=== PATIENT | female | born 1985 | race Caucasian/White ===

== ENCOUNTER → 2018-09-22 | Outpatient (CLI) | payer OTHER, SELFPAY ==
[~2018-09-22] MED LIST: CONC27TA4 PO; METH27TA5; PRAZ2CAP; PRAZ2CAP PO; RISP1TAB3; RISP1TAB3 PO; VENTAER INH
== END ==
LOC: M OUTALCOH 08:13
PROVIDERS: ATTEND Psychiatry & Neurology Psychiatry
DX: F10.20 Alcohol dependence, uncomplicated (principal)

== ENCOUNTER 2018-10-09 16:00 | Outpatient (RCR) | payer OTHER | END 2018-10-14 | LOC: M OUTALCOH 16:00 | PROVIDERS: ATTEND Psychiatry & Neurology Psychiatry | DX: F10.20 Alcohol dependence, uncomplicated (principal); F17.200 Nicotine dependence, unspecified, uncomplicated ==

== ENCOUNTER → 2018-10-30 | Outpatient (REF) | payer OTHER ==
[2018-10-30 12:52] LABS: BASO # 0.1 10^3/uL (0.0-0.2); BASO % 0.4 % (0.0-1.0); EOS # 0.1 10^3/uL (0.0-0.5); EOS % 0.5 % (0.0-3.0); HEMATOCRIT 39.7 % (36.0-47.0); HEMOGLOBIN 13.4 g/dl (12.0-15.5); LYMPH # 1.9 10^3/uL (1.5-5.0); LYMPH % 16.3 % (24.0-44.0); MEAN CORPUSCULAR HEMOGLOBIN 30.9 pg (27.0-33.0); MEAN CORPUSCULAR HGB CONC 33.8 g/dl (32.0-36.5); MEAN CORPUSCULAR VOLUME 91.7 fl (80.0-96.0); MONO # 0.5 10^3/uL (0.0-0.8); MONO % 4.4 % (0.0-5.0); NEUTROPHILS # 9.1 10^3/uL (1.5-8.5); NEUTROPHILS % 78.1 % (36.0-66.0); PLATELET COUNT, AUTOMATED 335 10^3/uL (150-450); RED BLOOD COUNT 4.33 10^6/uL (4.00-5.40); WHITE BLOOD COUNT 11.7 10^3/uL (4.0-10.0)
[2018-10-30 13:48] LABS: HEPATITIS A ANTIBODY IGM NEGATIVE (NEGATIVE); HEPATITIS B CORE ANTIBODY IGM NEGATIVE (NEGATIVE); HEPATITIS B SURFACE ANTIGEN NEGATIVE (NEGATIVE); HEPATITIS C VIRUS ABY INDEX 0.1 INDEX (<0.8); HIV 1&2 SCREEN CENTAUR NEGATIVE (NEGATIVE)
== END ==
LOC: M SFHCPLAZ 10:12
PROVIDERS: ATTEND Family Medicine
DX: Z11.4 Encounter for screening for human immunodeficiency virus [HIV] (principal); Z11.59 Encounter for screening for other viral diseases; N30.01 Acute cystitis with hematuria

== ENCOUNTER 2018-11-10 12:47 | Outpatient (RCR) | payer OTHER | END 2018-11-13 | LOC: M OUTALCOH 12:47 | PROVIDERS: ATTEND Psychiatry & Neurology Psychiatry | DX: F10.20 Alcohol dependence, uncomplicated (principal); F17.200 Nicotine dependence, unspecified, uncomplicated ==

== ENCOUNTER 2018-11-24 10:30 | Outpatient (RCR) | payer OTHER | END 2018-12-14 | LOC: M OUTALCOH 10:30 | PROVIDERS: ATTEND Psychiatry & Neurology Psychiatry | DX: F10.20 Alcohol dependence, uncomplicated (principal); F17.200 Nicotine dependence, unspecified, uncomplicated ==

== ENCOUNTER → 2018-11-29 | Outpatient (REF) | payer OTHER ==
[2018-11-29 12:31] LABS: FREE T4 0.97 NG/DL (0.76-1.46)
[2018-11-29 13:13] LABS: HIV 1&2 SCREEN CENTAUR NEGATIVE (NEGATIVE)
[2018-11-29 14:02] LABS: CHLAMYDIA DNA AMPLIFICATION NEGATIVE (NEGATIVE); GC DNA AMPLIFICATION NEGATIVE (NEGATIVE)
== END ==
LOC: M SFHCPLAZ 10:16
PROVIDERS: ATTEND Family Medicine
DX: Z11.3 Encounter for screening for infections with a predominantly sexual mode of transmission (principal); Z13.29 Encounter for screening for other suspected endocrine disorder

== ENCOUNTER 2019-04-06 08:46 | Emergency (ER) | payer OTHER ==
[~2019-04-06] VITALS: Ht 165.1 cm; Wt 59.1 kg
[2019-04-06] MEDS ORDERED: ONDANSETRON 4MG/2ML VIAL (J2405) IV ONE (09:30)
[2019-04-06] MEDS ORDERED: ACETAMINOPHEN TAB 650MG DOSE (2X325MG) PO ONE (09:30)
[2019-04-06 09:38] LABS: BASO % 0.3 % (0.0-1.0); EOS % 0.3 % (0.0-3.0); HEMATOCRIT 38.9 % (36.0-47.0); HEMOGLOBIN 13.3 g/dl (12.0-15.5); LYMPH # 1.4 10^3/uL (1.5-5.0); LYMPH % 11.5 % (24.0-44.0); MEAN CORPUSCULAR HEMOGLOBIN 31.1 pg (27.0-33.0); MEAN CORPUSCULAR HGB CONC 34.2 g/dl (32.0-36.5); MEAN CORPUSCULAR VOLUME 91.1 fl (80.0-96.0); MONO % 8.8 % (0.0-5.0); NEUTROPHILS # 9.4 10^3/uL (1.5-8.5); NEUTROPHILS % 78.7 % (36.0-66.0); PLATELET COUNT, AUTOMATED 289 10^3/uL (150-450); RED BLOOD COUNT 4.27 10^6/uL (4.00-5.40); WHITE BLOOD COUNT 11.9 10^3/uL (4.0-10.0)
--- NOTE | 2019-04-06 09:55 | REP ---
Clinical: Left flank pain. Technique: Axial noncontrast images from the lung bases to the pubic symphysis with coronal and sagittal re-formations. Findings: The kidneys demonstrate mild perinephric stranding (left greater than right) without hydroureteronephrosis or nephroureterolithiasis. Liver, spleen, pancreas, and bilateral adrenal glands are normal. Evidence of prior cholecystectomy. The enteric system is without obstruction or acute inflammatory process. Pelvis demonstrates collapsed normal bladder and evidence of prior hysterectomy. No ascites. No free air. No adenopathy. Abdominal aorta without aneurysm. Musculoskeletal structures are intact. Lung bases are clear. Impression: 1. Perinephric stranding (left greater than right) suggests possible pyelonephritis. No hydronephrosis or nephroureterolithiasis. Electronically Signed by Phil Groves MD 04/06/2019 09:47 A
[2019-04-06 11:03] LABS: ALT/SGPT 30 U/L (12-78); BILIRUBIN,DIRECT 0.2 MG/DL (0.0-0.2); BILIRUBIN,TOTAL 0.5 MG/DL (0.2-1.0); BLOOD UREA NITROGEN 8 MG/DL (7-18); CARBON DIOXIDE LEVEL 24 MEQ/L (21-32); CHLORIDE LEVEL 105 MEQ/L (98-107); CREATININE FOR GFR 0.68 MG/DL (0.55-1.30); GLOMERULAR FILTRATION RATE > 60.0 (>60); GLUCOSE, FASTING 95 MG/DL (70-100); LIPASE 64 U/L (73-393); POTASSIUM SERUM 3.7 MEQ/L (3.5-5.1); SODIUM LEVEL 137 MEQ/L (136-145); TOTAL PROTEIN 7.8 GM/DL (6.4-8.2)
[2019-04-06] MEDS ORDERED: KETOROLAC 30 MG/ML VIAL (J1885) IV ONE (11:15)
[2019-04-06] MEDS ORDERED: cefTRIAXone SOD 1 GM in D5W MINI-BAG PLUS 50 ML IV ONE (11:15)
[2019-04-06] MEDS ORDERED: BACT800T5 PO (11:21)
[2019-04-06] MEDS ORDERED: ONDA4TAB6 PO (12:23)
[2019-04-06 12:28] VITALS: BP 116/62
== END 2019-04-06 12:36 | disposition home or self-care (01) ==
LOC: M ED 08:46
DX: N10 Acute pyelonephritis (principal); N39.0 Urinary tract infection, site not specified; K80.20 Calculus of gallbladder without cholecystitis without obstruction; Z87.442 Personal history of urinary calculi; Z87.448 Personal history of other diseases of urinary system; F43.10 Post-traumatic stress disorder, unspecified; F31.89 Other bipolar disorder; Z85.42 Personal history of malignant neoplasm of other parts of uterus; F17.200 Nicotine dependence, unspecified, uncomplicated; Z88.8 Allergy status to other drugs, medicaments and biological substances
CPT/HCPCS: 74176; 80048; 80076; 81001; 83690; 85025; 87088; 87186; 96365; 96375; 99284; J0696; J1885; J2405

== ENCOUNTER 2019-05-26 15:35 | Emergency (ER) | payer OTHER ==
[~2019-05-26] VITALS: Ht 165.1 cm; Wt 61.0 kg
[2019-05-26 15:35] VITALS: BP 137/83
[~2019-05-26 15:35] MED LIST changes: +BACT800T5 PO; +ONDA4TAB6 PO
[2019-05-26] MEDS ORDERED: QC A650T3 PO (15:54)
[2019-05-26 16:19] LABS: BASO % 0.3 % (0.0-1.0); EOS # 0.1 10^3/uL (0.0-0.5); EOS % 0.4 % (0.0-3.0); HEMOGLOBIN 13.3 g/dl (12.0-15.5); LYMPH # 2.2 10^3/uL (1.5-5.0); LYMPH % 18.2 % (24.0-44.0); MEAN CORPUSCULAR HEMOGLOBIN 31.6 pg (27.0-33.0); MEAN CORPUSCULAR HGB CONC 33.3 g/dl (32.0-36.5); MONO # 0.7 10^3/uL (0.0-0.8); MONO % 5.6 % (0.0-5.0); NEUTROPHILS # 9.1 10^3/uL (1.5-8.5); NEUTROPHILS % 75.3 % (36.0-66.0); PLATELET COUNT, AUTOMATED 306 10^3/uL (150-450); RED BLOOD COUNT 4.21 10^6/uL (4.00-5.40); WHITE BLOOD COUNT 12.1 10^3/uL (4.0-10.0)
[2019-05-26] MEDS ORDERED: OMEP40CA97 PO (16:55)
== END 2019-05-26 17:04 | disposition home or self-care (01) ==
LOC: M ED 15:35
DX: K64.4 Residual hemorrhoidal skin tags (principal); K21.9 Gastro-esophageal reflux disease without esophagitis; R31.9 Hematuria, unspecified; R51 Headache; J45.909 Unspecified asthma, uncomplicated; D64.9 Anemia, unspecified; F43.10 Post-traumatic stress disorder, unspecified; F31.89 Other bipolar disorder; F41.9 Anxiety disorder, unspecified; F20.9 Schizophrenia, unspecified; F17.200 Nicotine dependence, unspecified, uncomplicated; Z88.8 Allergy status to other drugs, medicaments and biological substances

== ENCOUNTER → 2019-05-31 | Outpatient (REF) | payer OTHER ==
[~2019-05-31] MED LIST changes: +OMEP40CA97 PO; +QC A650T3 PO
[2019-05-31 17:41] LABS: APPEARANCE, URINE CLEAR (CLEAR); BACTERIA, URINE AUTO NEGATIVE (NEGATIVE); BILIRUBIN, URINE AUTO NEGATIVE (NEGATIVE); BLOOD, URINE BLOOD 1+ (NEGATIVE); COLOR, URINE STRAW (YELLOW); GLUCOSE, URINE (UA) AUTO NEGATIVE (NEGATIVE); KETONE, URINE AUTO NEGATIVE (NEGATIVE); LEUKOCYTE ESTERASE, URINE AUTO NEGATIVE (NEGATIVE); MUCUS, URINE SMALL (NEGATIVE); NITRITE, URINE AUTO NEGATIVE (NEGATIVE); PROTEIN, URINE AUTO NEGATIVE (NEGATIVE); RBC, URINE AUTO 0 /HPF (0-3); SPECIFIC GRAVITY URINE AUTO 1.003 (1.002-1.035); SQUAMOUS EPITHELIAL CELL UR AU 1 /HPF (0-6); UROBILINOGEN, URINE AUTO 0.2 mg/dL (0.0-2.0); WBC, URINE AUTO 0 /HPF (0-3)
== END ==
LOC: M SMT 17:02
PROVIDERS: ATTEND Nurse Practitioner Women's Health
DX: N39.0 Urinary tract infection, site not specified (principal)

== ENCOUNTER 2019-08-04 10:34 | Emergency (ER) | payer OTHER ==
[~2019-08-04] VITALS: Ht 165.1 cm; Wt 61.4 kg
[2019-08-04] MEDS ORDERED: ACETAMINOPHEN 325 MG TAB PO ONE (11:15)
[2019-08-04] MEDS ORDERED: LORazepam 1 MG TAB PO STA (11:16)
--- NOTE | 2019-08-04 11:40 | REP ---
Head CT without contrast: History: Head trauma. Comparison study: No comparison study. CT findings: Bone window settings demonstrate an intact bony calvarium. There is no evidence of skull fracture or incidental bony calvarial lesion. The visualized paranasal sinuses appear clear. No intraorbital abnormality is seen. On soft tissue window setting images; the lateral, third, and fourth ventricles are normal in size and position. Mello-white differentiation pattern is normal above and below the tentorium. There are is no evidence of intracranial hemorrhage. No mass, edema, infarction, or midline shift is seen. No extra-axial fluid collection is appreciated. Impression: Negative noncontrast head CT. Electronically Signed by Barry Padilla MD 08/04/2019 11:29 A
[2019-08-04 12:15] VITALS: BP 119/81
--- NOTE | 2019-08-04 14:39 | ECGEPIP ---
[facility] - ED Test Date: 2019-08-04 Pat Name: SCOTTY NEWMAN Department: Room: - Gender: Female Forepart Rasper: NORRIS : 1985 Requested By: NEO Chin PA-C Order Number: [id number] Reading MD: Kaylie Laboy Measurements Intervals [place] Rate: 84 P: 66 [place]: 177 QRS: 83 QRSD: 101 T: 57 QT: 368 QTc: 436 Interpretive Statements SINUS RHYTHM POSSIBLE RIGHT VENTRICULAR CONDUCTION DELAY No prior Electronically Signed on 08-04-2019 14:39:18 EDT by Kaylie Laboy
== END 2019-08-04 12:19 | disposition home or self-care (01) ==
LOC: M ED 10:34
DX: S09.90XA Unspecified injury of head, initial encounter (principal); T74.11XA Adult physical abuse, confirmed, initial encounter; F41.9 Anxiety disorder, unspecified; Y04.8XXA Assault by other bodily force, initial encounter; Y92.099 Unspecified place in other non-institutional residence as the place of occurrence of the external cause; Y93.9 Activity, unspecified; Y99.9 Unspecified external cause status; J45.909 Unspecified asthma, uncomplicated; F31.89 Other bipolar disorder; Z85.42 Personal history of malignant neoplasm of other parts of uterus; Z72.0 Tobacco use; Z88.8 Allergy status to other drugs, medicaments and biological substances

== ENCOUNTER 2019-11-28 01:18 | Emergency (ER) | payer OTHER ==
[~2019-11-28] VITALS: Ht 165.1 cm; Wt 62.7 kg
[2019-11-28] MEDS ORDERED: IBUP-1022 PO (01:33)
--- NOTE | 2019-11-28 02:02 | REPVR ---
PROCEDURE INFORMATION: Exam: XR Left Foot Complete Exam date and time: 11/28/2019 1:34 AM Age: 34 years old Clinical indication: Other: Pain; Additional info: Pain/trauma TECHNIQUE: Imaging protocol: XR Left foot. Views: 3 or more views. COMPARISON: No relevant prior studies available. FINDINGS: Bones/joints: Normal hindfoot alignment. No evidence of tarsal coalition. No acute fracture or stress fracture. Lisfranc and midfoot alignment is normal. Joint spaces are well-maintained for age. Accessory navicular incidentally noted Soft tissues: No focal soft tissue process. IMPRESSION: Normal radiographic series of the foot. Electronically signed by: Helio Reed On 11/28/2019 02:02:30 AM
[2019-11-28] MEDS ORDERED: IBUPROFEN 800 MG TAB PO ONE (05:30)
[2019-11-28 05:48] VITALS: BP 120/78
== END 2019-11-28 05:51 | disposition home or self-care (01) ==
LOC: M ED 05:10
DX: S90.32XA Contusion of left foot, initial encounter (principal); W13.4XXA Fall from, out of or through window, initial encounter; Y92.099 Unspecified place in other non-institutional residence as the place of occurrence of the external cause; Y93.89 Activity, other specified; Y99.9 Unspecified external cause status; F17.200 Nicotine dependence, unspecified, uncomplicated; Z88.8 Allergy status to other drugs, medicaments and biological substances

== ENCOUNTER 2020-04-14 00:35 | Inpatient (IN) | payer OTHER ==
[~2020-04-14] VITALS: Ht 165.1 cm; Wt 62.1 kg
[~2020-04-14 00:35] MED LIST changes: +IBUP-1022 PO; +RISP-8; +RISP-8 PO; -RISP1TAB3; -RISP1TAB3 PO
[2020-04-14 00:56] LABS: HEMATOCRIT 43.4 % (36.0-47.0); HEMOGLOBIN 14.6 g/dl (12.0-15.5); MEAN CORPUSCULAR HEMOGLOBIN 32.1 pg (27.0-33.0); MEAN CORPUSCULAR HGB CONC 33.6 g/dl (32.0-36.5); MEAN CORPUSCULAR VOLUME 95.4 fl (80.0-96.0); PLATELET COUNT, AUTOMATED 277 10^3/uL (150-450); RED BLOOD COUNT 4.55 10^6/uL (4.00-5.40); WHITE BLOOD COUNT 17.2 10^3/uL (4.0-10.0)
[2020-04-14 01:01] LABS: HCG, SERUM QUALITATIVE NEGATIVE (NEGATIVE)
[2020-04-14 01:07] LABS: AMPHETAMINES LEVEL URINE NEGATIVE (NEGATIVE); BARBITURATES URINE NEGATIVE (NEGATIVE); BENZODIAZEPINES URINE NEGATIVE (NEGATIVE); CANNABINOIDS URINE NEGATIVE (NEGATIVE); COCAINE METABOLITE URINE NEGATIVE (NEGATIVE); METHADONE URINE NEGATIVE (NEGATIVE); OPIATES URINE NEGATIVE (NEGATIVE); PHENCYCLIDINE URINE NEGATIVE (NEGATIVE)
[2020-04-14] MEDS ORDERED: LORazepam 2 MG TAB PO ONE (01:15)
[2020-04-14 01:24] LABS: ACETAMINOPHEN LEVEL < 2.0 UG/ML (10.0-30.0); ALBUMIN 4.5 GM/DL (3.2-5.2); ALT/SGPT 72 U/L (12-78); BILIRUBIN,DIRECT 0.1 MG/DL (0.0-0.2); BILIRUBIN,TOTAL 0.3 MG/DL (0.2-1.0); BLOOD UREA NITROGEN 11 MG/DL (7-18); CALCIUM LEVEL 9.2 MG/DL (8.5-10.1); CARBON DIOXIDE LEVEL 19 MEQ/L (21-32); CHLORIDE LEVEL 104 MEQ/L (98-107); CREATININE FOR GFR 0.79 MG/DL (0.55-1.30); ETHYL ALCOHOL (ETHANOL) 0.239 % (0.000-0.010); GLOMERULAR FILTRATION RATE > 60.0 (>60); GLUCOSE, FASTING 101 MG/DL (70-100); POTASSIUM SERUM 4.3 MEQ/L (3.5-5.1); SALICYLATE LEVEL 7.3 MG/DL (5.0-30.0); SODIUM LEVEL 135 MEQ/L (136-145); TOTAL PROTEIN 8.5 GM/DL (6.4-8.2)
[2020-04-14] MEDS ORDERED: LORazepam 2 MG TAB PO PRN (08:20)
[2020-04-14] MEDS ORDERED: ONDANSETRON 4 MG ORAL DISINTEGRATING TAB PO ONE (08:35)
[2020-04-14] MEDS ORDERED: FOLIC ACID 1 MG TAB PO SCH (09:00)
[2020-04-14] MEDS ORDERED: THIAMINE 100 MG TAB PO SCH (09:00)
[2020-04-14] MEDS ORDERED: MULTIVITAMINS/MINERALS THERAP 1 TAB PO SCH (09:00)
[2020-04-14 11:36] LABS: RSV AMPLIFICATION NEGATIVE (NEGATIVE)
[2020-04-14] MEDS ORDERED: traZODone 50 MG TAB PO PRN (12:10)
[2020-04-14] MEDS ORDERED: MAALOX 30 ML SUSP *UDC PO PRN (12:10)
[2020-04-14] MEDS ORDERED: MOM 30ML SUSPENSION UDC PO PRN (12:10)
[2020-04-14] MEDS ORDERED: NICOTINE 21MG/24HR 1 EA TRANSDERMAL TD SCH (14:40)
[2020-04-14 16:08] VITALS: BP 140/100
[2020-04-14 16:18] VITALS: BP 140/100
[2020-04-14] MEDS: LORazepam 2 MG TAB PO PRN (16:28)
[2020-04-14] MEDS: THIAMINE 100 MG TAB PO SCH (16:29)
[2020-04-15] MEDS: ACETAMINOPHEN TAB 650MG DOSE (2X325MG) PO PRN ×2 (01:15→08:29)
[2020-04-15 06:00] VITALS: BP 93/54
[2020-04-15 06:06] VITALS: BP 93/54
[2020-04-15 08:24] VITALS: BP 130/93
[2020-04-15] MEDS: THIAMINE 100 MG TAB PO SCH (08:28)
[2020-04-15] MEDS: LORazepam 2 MG TAB PO PRN (08:29)
[2020-04-15] MEDS ORDERED: NICOTINE 21MG/24HR 1 EA TRANSDERMAL TD SCH ×2 (09:00)
[2020-04-15] MEDS ORDERED: MULTIVITAMINS/MINERALS THERAP 1 TAB PO SCH (09:00)
[2020-04-15] MEDS ORDERED: FOLIC ACID 1 MG TAB PO SCH (09:00)
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
== END 2020-04-15 12:00 | disposition home or self-care (01) | DRG 754 ==
LOC: M ED 00:35 → M ED INP 12:06 → M PSY 15:07
PROVIDERS: ADMIT Psychiatry & Neurology Child & Adolescent Psychiatry; ATTEND Psychiatry & Neurology Psychiatry
DX: F32.9 Major depressive disorder, single episode, unspecified (principal); F41.1 Generalized anxiety disorder; F43.10 Post-traumatic stress disorder, unspecified; F17.200 Nicotine dependence, unspecified, uncomplicated; F10.10 Alcohol abuse, uncomplicated; Z88.8 Allergy status to other drugs, medicaments and biological substances

== ENCOUNTER 2020-07-25 12:14 | Emergency (ER) | payer OTHER ==
[~2020-07-25] VITALS: Ht 170.2 cm; Wt 63.1 kg
[2020-07-25] MEDS ORDERED: GI COCKTAIL 50ML BTL(HYOSCYAMINE/MAALOX/LIDOCAINE VISCOUS)(1:3:1) PO ONE (13:50)
[2020-07-25] MEDS ORDERED: ONDANSETRON 4MG/2ML VIAL IV ONE (13:50)
[2020-07-25] MEDS ORDERED: PANTOPRAZOLE 40MG VIAL (C9113 PER 1) IV ONE (13:50)
[2020-07-25] MEDS ORDERED: NS 1,000 ML IV ONE (13:50)
[2020-07-25] MEDS ORDERED: KETOROLAC 30 MG/ML 1ML VIAL IV ONE (13:50)
[2020-07-25 14:34] LABS: BASO % 0.9 % (0.0-1.0); EOS % 0.2 % (0.0-3.0); HEMATOCRIT 39.6 % (36.0-47.0); HEMOGLOBIN 13.6 g/dl (12.0-15.5); LYMPH % 21.6 % (24.0-44.0); MEAN CORPUSCULAR HEMOGLOBIN 32.8 pg (27.0-33.0); MEAN CORPUSCULAR HGB CONC 34.3 g/dl (32.0-36.5); MEAN CORPUSCULAR VOLUME 95.4 fl (80.0-96.0); MONO # 0.3 10^3/uL (0.0-0.8); MONO % 7.6 % (2.0-8.0); NEUTROPHILS # 3.1 10^3/uL (1.5-8.5); NEUTROPHILS % 69.5 % (36.0-66.0); PLATELET COUNT, AUTOMATED 190 10^3/uL (150-450); RED BLOOD COUNT 4.15 10^6/uL (4.00-5.40); WHITE BLOOD COUNT 4.5 10^3/uL (4.0-10.0)
[2020-07-25 15:01] LABS: ALBUMIN 4.1 GM/DL (3.2-5.2); ALT/SGPT 250 U/L (12-78); BILIRUBIN,DIRECT 0.2 MG/DL (0.0-0.2); BILIRUBIN,TOTAL 0.7 MG/DL (0.2-1.0); LIPASE 103 U/L (73-393); TOTAL PROTEIN 7.5 GM/DL (6.4-8.2)
--- NOTE | 2020-07-25 15:35 | REP ---
INDICATION: left flank pain, stone vs infection. COMPARISON: None. TECHNIQUE: Real-time sonographic evaluation of the kidneys is performed. FINDINGS: Renal cortical echogenicity pattern is normal bilaterally and contours are smooth. There is no evidence of hydronephrosis, cyst, mass, or calculus in either kidney. The right kidney measures 10.7 x 5.4 x 4.1 cm. Left renal dimensions are 10.4 x 4.1 x 5.5 cm. The urinary bladder is unremarkable. With Doppler color evaluation a left ureteral jet is visualized, a right ureteral jet is not seen. IMPRESSION: No hydronephrosis or large renal calculus. Right ureteral jet not visualized, left jet is seen. <Electronically signed by Neeraj Mello > 07/25/20 [id number]
[2020-07-25] MEDS ORDERED: OMEP40CA97 PO (15:57)
[2020-07-25] MEDS ORDERED: ASPE4PAD TOP (15:57)
[2020-07-25] MEDS ORDERED: NAPR-837 PO (15:57)
[2020-07-25] MEDS ORDERED: METH-1165 PO (15:57)
[2020-07-25 16:07] VITALS: BP 136/89
[2020-07-25 16:39] LABS: HEPATITIS B SURFACE ANTIGEN NEGATIVE (NEGATIVE)
[2020-07-25 17:07] LABS: HEPATITIS C VIRUS ABY INDEX < 0.0 INDEX (<0.8)
[2020-07-25 17:08] LABS: HEPATITIS B CORE ANTIBODY IGM NEGATIVE (NEGATIVE)
[2020-07-25 17:09] LABS: HEPATITIS A ANTIBODY IGM NEGATIVE (NEGATIVE)
== END 2020-07-25 16:12 | disposition home or self-care (01) ==
LOC: M ED 12:14
DX: R94.5 Abnormal results of liver function studies (principal); R10.13 Epigastric pain; R11.2 Nausea with vomiting, unspecified; M54.5 Low back pain; R51.9 Headache, unspecified; J45.909 Unspecified asthma, uncomplicated; Z87.440 Personal history of urinary (tract) infections; F17.200 Nicotine dependence, unspecified, uncomplicated; Z88.8 Allergy status to other drugs, medicaments and biological substances
CPT/HCPCS: 76775; 80047; 80076; 81001; 83690; 84702; 85025; 86705; 86709; 86803; 87340; 96361; 96374; 96375; 99284; C9113; J1885; J2405

== ENCOUNTER → 2020-08-01 | Outpatient (REF) | payer OTHER ==
[~2020-08-01] MED LIST changes: +ASPE4PAD TOP; +METH-1165 PO; +NAPR-837 PO; +OMEP40CA4 PO; -OMEP40CA97 PO
[2020-08-01 16:39] LABS: ALBUMIN 3.7 GM/DL (3.2-5.2); ALT/SGPT 100 U/L (12-78); BILIRUBIN,TOTAL 0.4 MG/DL (0.2-1.0); BLOOD UREA NITROGEN 9 MG/DL (7-18); CALCIUM LEVEL 9.2 MG/DL (8.5-10.1); CARBON DIOXIDE LEVEL 30 MEQ/L (21-32); CHLORIDE LEVEL 105 MEQ/L (98-107); CREATININE FOR GFR 0.64 MG/DL (0.55-1.30); GLOMERULAR FILTRATION RATE > 60.0 (>60); GLUCOSE, FASTING 66 MG/DL (70-100); POTASSIUM SERUM 3.5 MEQ/L (3.5-5.1); SODIUM LEVEL 139 MEQ/L (136-145); TOTAL PROTEIN 6.9 GM/DL (6.4-8.2)
== END ==
LOC: M SFHCPLAZ 13:54
PROVIDERS: ATTEND Family Medicine
DX: R74.01 Elevation of levels of liver transaminase levels (principal); R79.89 Other specified abnormal findings of blood chemistry

== ENCOUNTER → 2021-05-19 | Outpatient (REF) | payer OTHER | LOC: M SFHCPLAZ 14:37 | PROVIDERS: ATTEND Student in an Organized Health Care Education/Training Program | DX: F31.9 Bipolar disorder, unspecified (principal) ==

== ENCOUNTER → 2021-05-19 | Outpatient (CLI) | payer OTHER ==
[2021-05-19 17:53] LABS: BASO # 0.1 10^3/uL (0.0-0.2); BASO % 0.6 % (0.0-1.0); EOS # 0.1 10^3/uL (0.0-0.5); HEMATOCRIT 38.1 % (36.0-47.0); HEMOGLOBIN 12.7 g/dl (12.0-15.5); LYMPH # 3.1 10^3/uL (1.5-5.0); MEAN CORPUSCULAR HEMOGLOBIN 30.2 pg (27.0-33.0); MEAN CORPUSCULAR HGB CONC 33.3 g/dl (32.0-36.5); MEAN CORPUSCULAR VOLUME 90.7 fl (80.0-96.0); MONO # 0.5 10^3/uL (0.0-0.8); MONO % 5.6 % (2.0-8.0); NEUTROPHILS # 5.1 10^3/uL (1.5-8.5); NEUTROPHILS % 57.4 % (36.0-66.0); PLATELET COUNT, AUTOMATED 401 10^3/uL (150-450)
[2021-05-19 18:17] LABS: ALBUMIN 3.9 GM/DL (3.2-5.2); ALT/SGPT 24 U/L (12-78); BILIRUBIN,TOTAL 0.4 MG/DL (0.2-1.0); BLOOD UREA NITROGEN 9 MG/DL (7-18); CALCIUM LEVEL 10.1 MG/DL (8.5-10.1); CARBON DIOXIDE LEVEL 29 MEQ/L (21-32); CHLORIDE LEVEL 107 MEQ/L (98-107); CREATININE FOR GFR 0.64 MG/DL (0.55-1.30); GLOMERULAR FILTRATION RATE > 60.0 (>60); GLUCOSE, FASTING 87 MG/DL (70-100); POTASSIUM SERUM 4.2 MEQ/L (3.5-5.1); SODIUM LEVEL 140 MEQ/L (136-145); TOTAL PROTEIN 7.6 GM/DL (6.4-8.2)
== END ==
LOC: M PLALAB 15:02
PROVIDERS: ATTEND Student in an Organized Health Care Education/Training Program
DX: F31.9 Bipolar disorder, unspecified (principal)

== ENCOUNTER 2021-06-28 16:03 | Emergency (ER) | payer OTHER ==
[~2021-06-28] VITALS: Ht 165.1 cm; Wt 65.2 kg
[2021-06-28 16:04] VITALS: BP 155/75
[2021-06-28] MEDS ORDERED: OXCA300T14 (16:09)
[2021-06-28] MEDS ORDERED: DOXE50CA (16:09)
[2021-06-28] MEDS ORDERED: CYCL-707 PO (21:12)
[2021-06-28] MEDS ORDERED: NAPR-837 PO (21:12)
== END 2021-06-28 21:26 | disposition home or self-care (01) ==
LOC: M ED 16:03
DX: D17.1 Benign lipomatous neoplasm of skin and subcutaneous tissue of trunk (principal); M54.50 Low back pain, unspecified; Z87.891 Personal history of nicotine dependence; J45.909 Unspecified asthma, uncomplicated; Z87.440 Personal history of urinary (tract) infections; Z87.59 Personal history of other complications of pregnancy, childbirth and the puerperium; Z85.42 Personal history of malignant neoplasm of other parts of uterus; M54.9 Dorsalgia, unspecified; D64.9 Anemia, unspecified; F43.10 Post-traumatic stress disorder, unspecified; F31.89 Other bipolar disorder; F20.9 Schizophrenia, unspecified; F41.9 Anxiety disorder, unspecified; Z88.8 Allergy status to other drugs, medicaments and biological substances

== ENCOUNTER → 2021-08-06 | Outpatient (CLI) | payer OTHER ==
[~2021-08-06] MED LIST changes: +CYCL-707 PO; +DOXE50CA PO; +HYDR1CAP25 PO; +OXCA300T14; +RISP-68
== END ==
LOC: M LABSMTC 09:32
PROVIDERS: ATTEND Anesthesiology
DX: Z01.812 Encounter for preprocedural laboratory examination (principal); Z20.822 Contact with and (suspected) exposure to COVID-19

== ENCOUNTER 2021-08-11 07:29 | Day surgery (SDC) | payer OTHER ==
[~2021-08-11] VITALS: Ht 165.1 cm; Wt 65.9 kg
[~2021-08-11 07:29] MED LIST changes: +ceFAZolin SOD 2 GM in IV 1 EA IV ONE
[2021-08-11] MEDS ORDERED: LR 1,000 ML IV SCH (07:50)
[2021-08-11] MEDS ORDERED: propofoL 500 MG/50 ML VIAL As Ordered ONE (09:12)
[2021-08-11] MEDS ORDERED: MIDAZOLAM INJ 2MG/2ML VIAL (J2250 PER 1MG) As Ordered ONE (09:13)
[2021-08-11] MEDS ORDERED: fentaNYL 100 MCG/2 ML INJECTION As Ordered ONE (09:13)
[2021-08-11] MEDS ORDERED: ONDANSETRON 4MG/2ML VIAL As Ordered ONE (09:15)
[2021-08-11] MEDS ORDERED: BUPIVACAINE/EPIN 0.25% 30 ML VIAL As Ordered ONE (09:35)
[2021-08-11] MEDS ORDERED: KETOROLAC 60MG 2ML VIAL As Ordered ONE (10:17)
[2021-08-11 11:39] VITALS: BP 117/67
== END 2021-08-11 11:54 | disposition home or self-care (01) ==
LOC: M SDC 07:29
PROVIDERS: ATTEND Surgery
DX: D17.1 Benign lipomatous neoplasm of skin and subcutaneous tissue of trunk (principal); D64.9 Anemia, unspecified; F31.9 Bipolar disorder, unspecified; F32.A Depression, unspecified; F41.9 Anxiety disorder, unspecified; F10.11 Alcohol abuse, in remission; Z79.899 Other long term (current) drug therapy; Z91.040 Latex allergy status; Z88.8 Allergy status to other drugs, medicaments and biological substances; F17.290 Nicotine dependence, other tobacco product, uncomplicated
CPT/HCPCS: 11406; 88304; J0690; J1885; J2250; J2405; J3010